=== PATIENT | female | born 1965 | race Asian ===

== ENCOUNTER 2022-04-04 12:31 | Emergency (ER) | payer MEDICARE ==
[~2022-04-04] VITALS: Ht 152.4 cm; Wt 57.7 kg
[2022-04-04 12:55] VITALS: BP 135/107
[2022-04-04] MEDS ORDERED: NIRM1TAB PO (17:52)
== END 2022-04-04 18:05 | disposition home or self-care (01) ==
LOC: ER 12:32
DX: U07.1 COVID-19 (principal); J02.9 Acute pharyngitis, unspecified; R05.9 Cough, unspecified; R50.9 Fever, unspecified; Z79.899 Other long term (current) drug therapy
CPT/HCPCS: 87502; 87503; 87635; 99283; C9803

== ENCOUNTER 2022-08-02 19:29 | Emergency (ER) | payer MEDICARE ==
[~2022-08-02] VITALS: Ht 152.4 cm; Wt 56.0 kg
[~2022-08-02 19:29] MED LIST: NIRM1TAB PO
--- NOTE | 2022-08-02 20:08 | NUR ---
pt states she is here for left trunk/ rib pain below left breast - hurts worse with deep inspiration. States fall 2 days ago onto left side on top of ladder.
[2022-08-02] MEDS ORDERED: HYDROcodone/acetaminophen 5mg/325mg tablet PO ONE (21:20)
[2022-08-02] MEDS ORDERED: HYDR-3965 PO (23:18)
[2022-08-02 23:50] VITALS: BP 128/78
== END 2022-08-02 23:52 | disposition home or self-care (01) ==
LOC: ER 19:30
DX: S22.39XA Fracture of one rib, unspecified side, initial encounter for closed fracture (principal); Z79.899 Other long term (current) drug therapy; W19.XXXA Unspecified fall, initial encounter; Y93.89 Activity, other specified; Y92.89 Other specified places as the place of occurrence of the external cause; Y99.8 Other external cause status
CPT/HCPCS: 71046; 71250; 99284

== ENCOUNTER 2024-08-19 03:56 | Emergency (ER) | payer MEDICARE ==
[~2024-08-19] VITALS: Ht 152.4 cm; Wt 59.3 kg
[2024-08-19 04:31] LABS: BASOPHILS % (AUTO) 0.6 % (0-1); EOSINOPHILS # (AUTO) 0.1 X10'3 (0-0.9); EOSINOPHILS % (AUTO) 0.9 % (0-6); HEMATOCRIT 41.7 % (35.0-45.0); HEMOGLOBIN 14.3 g/dl (12.0-16.0); LYMPHOCYTES # (AUTO) 1.7 X10'3 (1.1-4.8); LYMPHOCYTES % (AUTO) 23.6 % (21-51); MEAN CORPUSCULAR HEMOGLOBIN 31.1 PG (27.0-31.0); MEAN CORPUSCULAR HGB CONC 34.2 g/dL (33.0-36.5); MEAN PLATELET VOLUME 8.5 FL (7.4-10.4); MONOCYTES # (AUTO) 0.4 X10'3 (0-0.9); NEUTROPHILS # (AUTO) 5.2 X10'3 (1.8-7.7); NEUTROPHILS % (AUTO) 69.9 % (42-75); PLATELET COUNT 199 X10'3 (140-440); RED BLOOD COUNT 4.59 X10'6 (4.20-5.60); RED CELL DISTRIBUTION WIDTH 13.6 % (11.5-14.5); WHITE BLOOD COUNT 7.4 X10'3 (4.5-11.0)
[2024-08-19 04:46] LABS: ALANINE AMINOTRANSFERASE 27 U/L (12-78); ALBUMIN 3.6 G/DL (3.4-5.0); ALKALINE PHOSPHATASE 122 IU/L (46-116); ANION GAP 8 (8-16); ASPARTATE AMINO TRANSFERASE 21 U/L (10-37); BILIRUBIN,TOTAL 0.4 MG/DL (0.1-1.0); BLOOD UREA NITROGEN 18 MG/DL (7-18); BUN/CREATININE RATIO 23.7 (10.0-20.0); CALCIUM 8.7 MG/DL (8.5-10.1); CHLORIDE 105 MMOL/L (99-107); CREATININE 0.76 MG/DL (0.40-0.90); GLUCOSE 133 MG/DL (70-104); POTASSIUM 3.7 MMOL/L (3.5-5.1); SODIUM 139 MMOL/L (135-145); TOTAL CARBON DIOXIDE 26.2 MMOL/L (24-32); TOTAL PROTEIN 7.3 G/DL (6.4-8.2); eCRCL 59 ML/MIN; eGFR 78 ML/MIN
[2024-08-19 04:55] LABS: PRO BRAIN NATRIURETIC PEPTIDE 128 PG/ML (0-125)
[2024-08-19 05:22] VITALS: TEMP 98.1
[2024-08-19] MEDS ORDERED: IBUP-1985 PO (05:29)
[2024-08-19] MEDS ORDERED: CYCL-1 PO (05:29)
[2024-08-19] MEDS: ketorolac trometh 15mg/ml vial 15 MG/ML ML IM ONE (05:37)
[2024-08-19] MEDS: orphenadrine citrate 60mg/2ml inj. IM ONE (05:38)
[2024-08-19 06:01] VITALS: BP 121/78; PULSE 68; RESP 15; O2SAT 97
== END 2024-08-19 06:04 | disposition home or self-care (01) ==
LOC: ER 03:57
DX: R07.89 Other chest pain (principal); M25.512 Pain in left shoulder; Z79.899 Other long term (current) drug therapy
CPT/HCPCS: 36415; 71045; 80053; 83880; 84484; 85025; 93005; 96372; 99285; J1885; J2360